=== PATIENT | male | born 1955 | race Caucasian/White ===

== ENCOUNTER 2020-02-02 07:52 | Day surgery (SDC) | payer OTHER | END 2020-02-02 11:55 | disposition home or self-care (01) | LOC: OR 07:52 → TBA 07:57 | DX: H02.105 Unspecified ectropion of left lower eyelid (principal); L72.0 Epidermal cyst; I10 Essential (primary) hypertension; E03.9 Hypothyroidism, unspecified; J42 Unspecified chronic bronchitis; K21.9 Gastro-esophageal reflux disease without esophagitis; F17.210 Nicotine dependence, cigarettes, uncomplicated; Z98.890 Other specified postprocedural states; Z79.899 Other long term (current) drug therapy; Z87.442 Personal history of urinary calculi; Z98.42 Cataract extraction status, left eye; Z98.41 Cataract extraction status, right eye; Z11.59 Encounter for screening for other viral diseases ==